=== PATIENT | male | born 1950 | race Caucasian/White ===

== ENCOUNTER 2020-11-10 14:53 | Outpatient (RCR) | payer MEDICARE, OTHER, SELFPAY ==
--- NOTE | 2020-11-10 17:12 | PTOPEVAL ---
Thank you for referring Jay Griffith to [facility].? The patient is scheduled to be seen for therapy? __2__x/week for 8 visits. Please review, sign, date and return this plan of care JAIMIE. I agree with and certify that the following plan of care is medically necessary. Referring Physician Date Admitting Provider: Attending Provider: CHELE TEJEDA Referring Provider: *PT Outpatient Evaluation Start: 11/10/20 15:13 Freq: Status: Active Protocol: Document 11/10/20 15:14 NAEEM (Rec: 11/10/20 16:22 [email or web address]) Therapy Assessment Status Assessment Status Assessment Status Evaluation Evaluation Information Problem Diagnosis cervical pain Onset 07/18/20 Subjective Information Pt. reports that he developed Query Text:As Reported By Patient/ neck and left arm pain around Family Jul. 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 He reports that his pain is constant, but worst at night. He states that pain keeps him awake and gets 2 hours of sleep at night due to pain. He reports that he is on 2 month leave due to his pain. He reports that he does not notice any weakness in the neck or back. He also notes trouble moving the left shoulder due to pain, especially reaching behind the back. Pt. reports that his goal is to decrease his neck and left arm pain. Diagnostic Tests X-Rays For This Problem Yes MRI For This Problem Yes Prior Level of Function Activity Level (Last 3 Months) Occupation [employer] Hand Dominance Right Activity of Daily Living Ability Independent Indoor/Home Mobility Independent Community Mobility Independent Stairs Ability Independent Functional Cognition (Planning, Shopping Independent , Taking Medications) Cooking Yes Cleaning Yes Laundry Yes Shopping Yes Driving Yes Pain Assessment Timing of Pain Assessment Timing of Pain Assessment Pre-Treatment Pain Scale Pain Scale Used Numeric (1 - 10) Self Report Pain Assessment Left Neck Reported Pain
--- NOTE | 2020-12-08 09:40 | PTOPEVAL ---
Thank you for referring Jay Griffith to [facility].? Please review, sign, date and return this plan of care JAIMIE. I agree with and certify that the following plan of care is medically necessary. Referring Physician Date Admitting Provider: Attending Provider: CHELE TEJEDA Referring Provider: *PT Outpatient Evaluation Start: 11/10/20 15:13 Freq: Status: Active Protocol: Document 12/08/20 09:00 NAEEM (Rec: 12/08/20 09:40 [email or web address]) Therapy Assessment Status Assessment Status Assessment Status Discharge Evaluation Information Problem Diagnosis cervical pain Onset 07/18/20 Subjective Information Pt. reports that he was doing Query Text:As Reported By Patient/ well until this morning. He Family states that he woke with a noted increase in pain. He states that his left arm is feeling better and mostly everything is localized to the neck. He states that he is still off work. Pain Assessment Timing of Pain Assessment Timing of Pain Assessment Pre-Treatment Pain Scale Pain Scale Used Numeric (1 - 10) Self Report Pain Assessment Left Neck Reported Pain Level 6 Pain Description Aching Pain Score Pain Score 6: Self Report Interventions Used Interventions Used By Clinicians Activity or ADL's,Electrical Stimulation,Exercise,Heat Cervical and Lumbar ROM Cervical ROM Cervical Flexion (0-60) 60 Query Text:Active in Degrees Cervical Extension (0-70) 55 Query Text:Active in Degrees Cervical Lateral Flexion Right (0-50) 35 Query Text:Active in Degrees Cervical Lateral Flexion Left (0-50) 35 Query Text:Active in Degrees Cervical Rotation Right (0-90) 85 Query Text:Active in Degrees Cervical Rotation Left (0-90) 80 Query Text:Active in Degrees Cervical ROM Comments Pain still noted at end range left rotation and sidebending Upper Extremity Muscle Strength Testing General Upper Extremity Strength Gross Upper Extremity Strength Comments -bilateral shoulder flexion 4+ /5 -bilateral shoulder ER 4+/5 -bilateral shoulder abduction 5/5 -bilateral elbow flexion 5/5 -bilateral elbow extension 5/5 Palpation Assessment Palpation Palpation Continue to note TTP of the left scalene and upper trap
== END 2020-12-08 11:20 | disposition home or self-care (01) ==
LOC: CHSPT 14:53
DX: M54.2 Cervicalgia (principal)
CPT/HCPCS: 97012; 97014; 97110; 97161; G0283